=== PATIENT | male | born 1985 | race Native Hawaiian/Other Pacific Islander ===

== ENCOUNTER 2019-09-24 13:29 | Inpatient (IN) | payer OTHER ==
[~2019-09-24] VITALS: Ht 167.6 cm; Wt 83.5 kg
[2019-09-24] MEDS ORDERED: OxyCODONE HCL 5 MG IR TABLET PO PRN (23:45)
[2019-09-24] MEDS ORDERED: OxyCODONE HCL 10 MG IR TABLET PO PRN (23:45)
[2019-09-25 00:18] VITALS: BP 113/63
[2019-09-25] MEDS: MELATONIN 3 MG TABLET PO PRN ×2 (00:24→20:38)
[2019-09-25] MEDS: DOCUSATE SODIUM 100 MG CAPSULE PO SCH ×3 (00:24→20:38)
[2019-09-25] MEDS: GABAPENTIN 300 MG CAPSULE PO SCH ×4 (00:25→23:23)
[2019-09-25] MEDS: ENOXAPARIN SODIUM 30 MG/0.3 ML PF SYRINGE SQ SCH ×3 (00:26→20:38)
[2019-09-25 08:15] VITALS: BP 116/69
[2019-09-25] MEDS: ACETAMINOPHEN 325 MG TABLET PO PRN (08:26)
[2019-09-25 08:31] LABS: BASOPHILS % (AUTO) 1.1 % (0.0-2.0); HEMATOCRIT 33.6 % (41-53); HEMOGLOBIN 11.3 g/dL (13.5-17.5); LYMPHOCYTES # (AUTO) 2.3 K/uL (1.0-4.8); LYMPHOCYTES % (AUTO) 39.2 % (22.0-44.0); MEAN CORPUSCULAR HEMOGLOBIN 29.9 pg (26.0-34.0); MEAN CORPUSCULAR HGB CONC 33.5 G/dL (31.0-37.0); MEAN CORPUSCULAR VOLUME 89 fL (80-100); MONOCYTES # (AUTO) 0.6 K/uL (0.1-1.0); MONOCYTES % (AUTO) 9.6 % (2.0-9.0); NEUTROPHILS # (AUTO) 2.9 K/uL (1.8-7.7); NEUTROPHILS % (AUTO) 49.1 % (40.0-70.0); PLATELET COUNT (AUTO) 409 K/uL (150-450); RED BLOOD CELL COUNT(AUTO) 3.77 MIL/uL (4.50-5.90); RED CELL DISTRIBUTION WIDTH 16.4 % (11.5-14.5)
[2019-09-25 09:00] LABS: ALANINE AMINOTRANSFERASE 35 U/L (12-78); ALBUMIN 3.5 g/dL (3.4-5.0); ALKALINE PHOSPHATASE 172 U/L (46-116); ANION GAP 9 mmol/L (8-16); ASPARTATE AMINOTRANSFERASE 20 U/L (15-37); BILIRUBIN,TOTAL 0.4 mg/dL (0.1-1.0); CARBON DIOXIDE 28 mmol/L (22-29); CHLORIDE 105 mmol/L (98-107); CREATININE 0.87 mg/dL (0.60-1.30); GLOMERULAR FILTR. RATE CALC > 60 mL/min (>60); GLUCOSE,RANDOM 88 mg/dL (70-110); POTASSIUM 3.3 mmol/L (3.5-5.1); SODIUM SERUM 142 mmol/L (136-145); TOTAL PROTEIN, SERUM 7.2 g/dL (6.4-8.2); UREA NITROGEN, BLOOD 9 mg/dL (7-18)
[2019-09-25] MEDS ORDERED: LORazepam 0.5 MG TABLET PO PRN (12:15)
[2019-09-25] MEDS ORDERED: POTASSIUM CHLORIDE 10 MEQ ER TABLET PO ONE ×2 (13:00→21:00)
[2019-09-25 15:32] VITALS: BP 124/75
[2019-09-25] MEDS: OxyCODONE HCL 20 MG ER TABLET PO SCH (20:38)
[2019-09-25] MEDS: SENNA 187 MG TABLET PO SCH (20:39)
[2019-09-26] VITALS: BP 117/74
[2019-09-26 09:15] VITALS: BP 118/82
[2019-09-26] MEDS: ENOXAPARIN SODIUM 30 MG/0.3 ML PF SYRINGE SQ SCH ×2 (09:15→20:20)
[2019-09-26] MEDS: GABAPENTIN 300 MG CAPSULE PO SCH ×3 (09:16→20:25)
[2019-09-26] MEDS: DOCUSATE SODIUM 100 MG CAPSULE PO SCH ×2 (09:16→20:18)
[2019-09-26] MEDS: OxyCODONE HCL 20 MG ER TABLET PO SCH ×2 (09:16→20:20)
[2019-09-26 09:27] LABS: ANION GAP 8 mmol/L (8-16); CALCIUM, TOTAL 9.3 mg/dL (8.8-10.5); CARBON DIOXIDE 28 mmol/L (22-29); CHLORIDE 104 mmol/L (98-107); CREATININE 0.97 mg/dL (0.60-1.30); GLOMERULAR FILTR. RATE CALC > 60 mL/min (>60); GLUCOSE,RANDOM 121 mg/dL (70-110); POTASSIUM 3.8 mmol/L (3.5-5.1); SODIUM SERUM 140 mmol/L (136-145); UREA NITROGEN, BLOOD 13 mg/dL (7-18)
[2019-09-26 17:00] VITALS: BP 109/59
[2019-09-26] MEDS: SENNA 187 MG TABLET PO SCH (20:19)
[2019-09-26] MEDS: MELATONIN 3 MG TABLET PO PRN (20:19)
[2019-09-26] MEDS ORDERED: POLYETHYLENE GLYCOL 3350 17 GM PACKET PO PRN (21:30)
[2019-09-27] MEDS ORDERED: TRAZ-252 PO (02:06)
[2019-09-27 04:00] VITALS: BP 119/68
[2019-09-27 07:20] VITALS: BP 113/65
[2019-09-27] MEDS: OxyCODONE HCL 20 MG ER TABLET PO SCH ×2 (07:39→21:13)
[2019-09-27] MEDS: GABAPENTIN 300 MG CAPSULE PO SCH ×3 (08:20→21:13)
[2019-09-27] MEDS: DOCUSATE SODIUM 100 MG CAPSULE PO SCH ×2 (08:20→21:13)
[2019-09-27] MEDS: ENOXAPARIN SODIUM 30 MG/0.3 ML PF SYRINGE SQ SCH ×2 (08:21→21:14)
[2019-09-27 17:24] VITALS: BP 116/67
[2019-09-27] MEDS: SENNA 187 MG TABLET PO SCH (21:13)
[2019-09-27] MEDS: TraZODone HCL 50 MG TABLET PO PRN (21:13)
[2019-09-27] MEDS ORDERED: MAGNESIUM HYDROXIDE SUSPENSION 30 ML UDCUP PO PRN (21:30)
[2019-09-27] MEDS: DOCUSATE SODIUM 283 MG/5 ML MINI-ENEMA PR PRN (21:38)
[2019-09-28] VITALS: BP 116/71
[2019-09-28] MEDS: ENOXAPARIN SODIUM 30 MG/0.3 ML PF SYRINGE SQ SCH ×2 (08:27→20:59)
[2019-09-28] MEDS: OxyCODONE HCL 20 MG ER TABLET PO SCH ×2 (08:28→21:00)
[2019-09-28] MEDS: DOCUSATE SODIUM 250 MG CAPSULE PO SCH ×2 (08:28→20:59)
[2019-09-28] MEDS: GABAPENTIN 300 MG CAPSULE PO SCH ×3 (08:28→20:59)
[2019-09-28 08:30] VITALS: BP 118/64
[2019-09-28 16:00] VITALS: BP 114/66
[2019-09-28] MEDS: DOCUSATE SODIUM 283 MG/5 ML MINI-ENEMA PR PRN (19:33)
[2019-09-28] MEDS: SENNA 187 MG TABLET PO SCH (20:59)
[2019-09-28] MEDS: TraZODone HCL 50 MG TABLET PO PRN (20:59)
[2019-09-29 00:09] VITALS: BP 110/59
[2019-09-29 07:40] VITALS: BP 110/69
[2019-09-29 08:00] VITALS: BP 110/69
[2019-09-29] MEDS: OxyCODONE HCL 20 MG ER TABLET PO SCH ×2 (09:00→21:00)
[2019-09-29] MEDS: DOCUSATE SODIUM 250 MG CAPSULE PO SCH ×2 (10:23→21:54)
[2019-09-29] MEDS: GABAPENTIN 300 MG CAPSULE PO SCH ×3 (10:23→21:54)
[2019-09-29] MEDS: ENOXAPARIN SODIUM 30 MG/0.3 ML PF SYRINGE SQ SCH ×2 (10:23→21:53)
[2019-09-29 16:00] VITALS: BP 128/72
[2019-09-29] MEDS: SENNA 187 MG TABLET PO SCH (21:00)
[2019-09-29] MEDS: TraZODone HCL 50 MG TABLET PO PRN (23:01)
[2019-09-30 00:01] VITALS: BP 121/75
[2019-09-30 07:05] VITALS: BP 120/68
[2019-09-30] MEDS: GABAPENTIN 300 MG CAPSULE PO SCH ×3 (07:43→20:33)
[2019-09-30] MEDS: ONDANSETRON HCL 4 MG TABLET PO PRN (07:43)
[2019-09-30] MEDS: DOCUSATE SODIUM 250 MG CAPSULE PO SCH ×2 (07:44→20:33)
[2019-09-30] MEDS: OxyCODONE HCL 20 MG ER TABLET PO SCH ×2 (08:05→20:35)
[2019-09-30] MEDS: ENOXAPARIN SODIUM 30 MG/0.3 ML PF SYRINGE SQ SCH ×2 (08:05→20:34)
[2019-09-30 16:45] VITALS: BP 116/77
[2019-09-30] MEDS: SENNA 187 MG TABLET PO SCH (20:34)
[2019-09-30] MEDS: TraZODone HCL 50 MG TABLET PO PRN (21:40)
[2019-10-01] VITALS: BP 105/67
[2019-10-01 08:15] VITALS: BP 114/66
[2019-10-01] MEDS: GABAPENTIN 300 MG CAPSULE PO SCH ×3 (08:58→20:47)
[2019-10-01] MEDS: DOCUSATE SODIUM 250 MG CAPSULE PO SCH ×2 (08:58→20:47)
[2019-10-01] MEDS: OxyCODONE HCL 20 MG ER TABLET PO SCH (08:59)
[2019-10-01] MEDS: ENOXAPARIN SODIUM 30 MG/0.3 ML PF SYRINGE SQ SCH ×2 (08:59→20:47)
[2019-10-01 17:18] VITALS: BP 130/91
[2019-10-01] MEDS: SENNA 187 MG TABLET PO SCH ×2 (20:47→20:52)
[2019-10-01] MEDS: TraZODone HCL 100 MG TABLET PO PRN (20:51)
[2019-10-02] VITALS: BP 116/57
[2019-10-02] MEDS: GABAPENTIN 300 MG CAPSULE PO SCH ×3 (08:56→20:22)
[2019-10-02] MEDS: DOCUSATE SODIUM 250 MG CAPSULE PO SCH ×2 (08:56→20:22)
[2019-10-02] MEDS: ENOXAPARIN SODIUM 30 MG/0.3 ML PF SYRINGE SQ SCH ×2 (09:05→20:21)
[2019-10-02 09:16] VITALS: BP 119/69
[2019-10-02] MEDS: ASCORBIC ACID 500 MG TABLET PO SCH (13:39)
[2019-10-02] MEDS: MULTIVITAMINS WITH MINERALS, THERAPEUTIC TABLET PO SCH (13:39)
[2019-10-02 17:39] VITALS: BP 131/87
[2019-10-02] MEDS: SENNA 187 MG TABLET PO SCH (20:22)
[2019-10-02] MEDS: TraZODone HCL 100 MG TABLET PO PRN (20:31)
[2019-10-03 00:30] VITALS: BP 111/69
[2019-10-03] MEDS: DOCUSATE SODIUM 250 MG CAPSULE PO SCH ×2 (08:23→21:01)
[2019-10-03] MEDS: MULTIVITAMINS WITH MINERALS, THERAPEUTIC TABLET PO SCH (08:23)
[2019-10-03] MEDS: ASCORBIC ACID 500 MG TABLET PO SCH (08:23)
[2019-10-03] MEDS: ENOXAPARIN SODIUM 30 MG/0.3 ML PF SYRINGE SQ SCH ×2 (08:23→21:01)
[2019-10-03] MEDS: GABAPENTIN 300 MG CAPSULE PO SCH ×3 (08:23→21:01)
[2019-10-03 09:00] VITALS: BP 131/90
[2019-10-03 16:05] VITALS: BP 131/85
[2019-10-03] MEDS: PANTOPRAZOLE SODIUM 40 MG DR TABLET PO SCH (18:38)
[2019-10-03 18:42] LABS: BASOPHILS % (AUTO) 1.3 % (0.0-2.0); EOSINOPHILS % (AUTO) 1.8 % (1.0-6.0); HEMATOCRIT 38.6 % (41-53); HEMOGLOBIN 13.1 g/dL (13.5-17.5); LYMPHOCYTES # (AUTO) 2.5 K/uL (1.0-4.8); LYMPHOCYTES % (AUTO) 41.4 % (22.0-44.0); MEAN CORPUSCULAR HEMOGLOBIN 30.1 pg (26.0-34.0); MEAN CORPUSCULAR VOLUME 89 fL (80-100); MONOCYTES # (AUTO) 0.6 K/uL (0.1-1.0); MONOCYTES % (AUTO) 9.2 % (2.0-9.0); NEUTROPHILS # (AUTO) 2.8 K/uL (1.8-7.7); NEUTROPHILS % (AUTO) 46.3 % (40.0-70.0); PLATELET COUNT (AUTO) 263 K/uL (150-450); RED BLOOD CELL COUNT(AUTO) 4.36 MIL/uL (4.50-5.90); RED CELL DISTRIBUTION WIDTH 14.6 % (11.5-14.5)
[2019-10-03 18:51] LABS: ANION GAP 8 mmol/L (8-16); CARBON DIOXIDE 30 mmol/L (22-29); CHLORIDE 106 mmol/L (98-107); CREATININE 1.09 mg/dL (0.60-1.30); GLOMERULAR FILTR. RATE CALC > 60 mL/min (>60); GLUCOSE,RANDOM 115 mg/dL (70-110); POTASSIUM 4.1 mmol/L (3.5-5.1); SODIUM SERUM 144 mmol/L (136-145); UREA NITROGEN, BLOOD 12 mg/dL (7-18)
[2019-10-03 18:57] LABS: ALANINE AMINOTRANSFERASE 54 U/L (12-78); ALBUMIN 3.8 g/dL (3.4-5.0); ALKALINE PHOSPHATASE 205 U/L (46-116); ASPARTATE AMINOTRANSFERASE 14 U/L (15-37); BILIRUBIN,TOTAL 0.3 mg/dL (0.1-1.0); TOTAL PROTEIN, SERUM 7.5 g/dL (6.4-8.2)
[2019-10-03] MEDS ORDERED: SODIUM CHLORIDE 0.9% 100 ML ONE (19:44)
[2019-10-03] MEDS ORDERED: IOVERSOL 350 MG/ML 100 ML VIAL ONE (19:45)
[2019-10-03] MEDS: SENNA 187 MG TABLET PO SCH (21:00)
[2019-10-03] MEDS: ACETAMINOPHEN 325 MG TABLET PO PRN (21:01)
[2019-10-03] MEDS: TraZODone HCL 100 MG TABLET PO PRN (21:40)
[2019-10-03] MEDS ORDERED: SIMETHICONE 80 MG CHEWABLE TABLET CHEW PRN (22:30)
[2019-10-03 23:30] VITALS: BP 119/82
[2019-10-03] MEDS: 0.9% SODIUM CHLORIDE 10 ML SYRINGE IVP SCH (23:33)
[2019-10-04] MEDS ORDERED: SIMETHICONE 80 MG CHEWABLE TABLET CHEW PRN (04:30)
[2019-10-04 06:38] LABS: ALANINE AMINOTRANSFERASE 41 U/L (12-78); ALBUMIN 3.2 g/dL (3.4-5.0); ALKALINE PHOSPHATASE 166 U/L (46-116); ANION GAP 9 mmol/L (8-16); ASPARTATE AMINOTRANSFERASE 11 U/L (15-37); BILIRUBIN,TOTAL 0.2 mg/dL (0.1-1.0); CALCIUM, TOTAL 8.6 mg/dL (8.8-10.5); CARBON DIOXIDE 24 mmol/L (22-29); CHLORIDE 108 mmol/L (98-107); CREATININE 0.92 mg/dL (0.60-1.30); GLOMERULAR FILTR. RATE CALC > 60 mL/min (>60); GLUCOSE,RANDOM 100 mg/dL (70-110); POTASSIUM 3.8 mmol/L (3.5-5.1); SODIUM SERUM 141 mmol/L (136-145); TOTAL PROTEIN, SERUM 6.7 g/dL (6.4-8.2); UREA NITROGEN, BLOOD 9 mg/dL (7-18)
[2019-10-04] MEDS: PANTOPRAZOLE SODIUM 40 MG DR TABLET PO SCH ×2 (08:55→20:15)
[2019-10-04] MEDS: 0.9% SODIUM CHLORIDE 10 ML SYRINGE IVP SCH (08:55)
[2019-10-04] MEDS: DOCUSATE SODIUM 250 MG CAPSULE PO SCH ×2 (08:56→20:16)
[2019-10-04] MEDS: MULTIVITAMINS WITH MINERALS, THERAPEUTIC TABLET PO SCH (08:56)
[2019-10-04] MEDS: ENOXAPARIN SODIUM 30 MG/0.3 ML PF SYRINGE SQ SCH ×2 (08:57→20:15)
[2019-10-04] MEDS: ASCORBIC ACID 500 MG TABLET PO SCH (08:57)
[2019-10-04] MEDS: GABAPENTIN 300 MG CAPSULE PO SCH ×3 (08:58→20:15)
[2019-10-04 09:00] VITALS: BP 116/70
[2019-10-04 15:30] VITALS: BP 119/74
[2019-10-04 16:00] VITALS: BP 119/74
[2019-10-04] MEDS: SENNA 187 MG TABLET PO SCH (20:16)
[2019-10-04] MEDS: TraZODone HCL 100 MG TABLET PO PRN (21:34)
[2019-10-05] VITALS: BP 116/69
[2019-10-05] MEDS: PANTOPRAZOLE SODIUM 40 MG DR TABLET PO SCH ×2 (06:42→20:11)
[2019-10-05] MEDS: MULTIVITAMINS WITH MINERALS, THERAPEUTIC TABLET PO SCH (06:42)
[2019-10-05] MEDS: ASCORBIC ACID 500 MG TABLET PO SCH (06:42)
[2019-10-05] MEDS: DOCUSATE SODIUM 250 MG CAPSULE PO SCH ×2 (06:42→20:10)
[2019-10-05] MEDS: ENOXAPARIN SODIUM 30 MG/0.3 ML PF SYRINGE SQ SCH ×2 (06:43→20:09)
[2019-10-05] MEDS: GABAPENTIN 300 MG CAPSULE PO SCH ×3 (06:43→20:11)
[2019-10-05] MEDS: ONDANSETRON HCL 4 MG TABLET PO PRN (06:43)
[2019-10-05 07:15] VITALS: BP 125/86
[2019-10-05 17:08] VITALS: BP 120/62
[2019-10-05] MEDS ORDERED: SODIUM CL IRRIG SOLN BOTTLE 250 ML IRRIG ONE (19:56)
[2019-10-05] MEDS: SENNA 187 MG TABLET PO SCH (20:11)
[2019-10-05] MEDS: TraZODone HCL 100 MG TABLET PO PRN (20:11)
[2019-10-06 01:47] VITALS: BP 124/73
[2019-10-06 08:02] VITALS: BP 113/71
[2019-10-06] MEDS: DOCUSATE SODIUM 250 MG CAPSULE PO SCH ×2 (08:45→21:06)
[2019-10-06] MEDS: GABAPENTIN 300 MG CAPSULE PO SCH ×3 (08:45→21:06)
[2019-10-06] MEDS: MULTIVITAMINS WITH MINERALS, THERAPEUTIC TABLET PO SCH (08:45)
[2019-10-06] MEDS: ASCORBIC ACID 500 MG TABLET PO SCH (08:45)
[2019-10-06] MEDS: PANTOPRAZOLE SODIUM 40 MG DR TABLET PO SCH ×2 (08:45→21:06)
[2019-10-06] MEDS: ENOXAPARIN SODIUM 30 MG/0.3 ML PF SYRINGE SQ SCH ×2 (09:08→21:07)
[2019-10-06 16:37] VITALS: BP 130/79
[2019-10-06] MEDS: SENNA 187 MG TABLET PO SCH ×2 (21:00→21:06)
[2019-10-06] MEDS: TraZODone HCL 100 MG TABLET PO PRN (21:07)
[2019-10-07 00:07] VITALS: BP 119/76
[2019-10-07] MEDS: MULTIVITAMINS WITH MINERALS, THERAPEUTIC TABLET PO SCH (08:53)
[2019-10-07] MEDS: DOCUSATE SODIUM 250 MG CAPSULE PO SCH ×2 (08:53→20:18)
[2019-10-07] MEDS: GABAPENTIN 300 MG CAPSULE PO SCH ×3 (08:54→20:18)
[2019-10-07] MEDS: PANTOPRAZOLE SODIUM 40 MG DR TABLET PO SCH ×2 (08:54→20:18)
[2019-10-07] MEDS: ASCORBIC ACID 500 MG TABLET PO SCH (08:54)
[2019-10-07] MEDS: ENOXAPARIN SODIUM 30 MG/0.3 ML PF SYRINGE SQ SCH ×2 (08:55→20:18)
[2019-10-07 09:04] VITALS: BP 122/78
[2019-10-07] MEDS ORDERED: SODIUM CL IRRIG SOLN BOTTLE 250 ML IRRIG ONE (10:45)
[2019-10-07 16:00] VITALS: BP 114/71
[2019-10-07] MEDS: SENNA 187 MG TABLET PO SCH (20:18)
[2019-10-07] MEDS: TraZODone HCL 100 MG TABLET PO PRN (20:24)
[2019-10-07 23:11] VITALS: BP 120/80
[2019-10-07] MEDS: IBUPROFEN 600 MG TABLET PO PRN (23:11)
[2019-10-08] MEDS: GABAPENTIN 300 MG CAPSULE PO SCH ×3 (08:54→20:12)
[2019-10-08] MEDS: MULTIVITAMINS WITH MINERALS, THERAPEUTIC TABLET PO SCH (08:54)
[2019-10-08] MEDS: IBUPROFEN 600 MG TABLET PO PRN ×2 (08:54→21:37)
[2019-10-08] MEDS: ENOXAPARIN SODIUM 30 MG/0.3 ML PF SYRINGE SQ SCH ×2 (08:54→20:12)
[2019-10-08] MEDS: ASCORBIC ACID 500 MG TABLET PO SCH (08:54)
[2019-10-08] MEDS: PANTOPRAZOLE SODIUM 40 MG DR TABLET PO SCH (08:54)
[2019-10-08] MEDS: DOCUSATE SODIUM 250 MG CAPSULE PO SCH ×2 (08:54→20:12)
[2019-10-08 08:55] VITALS: BP 126/85
[2019-10-08 17:12] VITALS: BP 121/76
[2019-10-08] MEDS: TraZODone HCL 100 MG TABLET PO PRN (20:12)
[2019-10-08] MEDS: SENNA 187 MG TABLET PO SCH (20:12)
[2019-10-09 00:30] VITALS: BP 121/76
[2019-10-09 07:30] VITALS: BP 124/70
[2019-10-09] MEDS: DOCUSATE SODIUM 250 MG CAPSULE PO SCH ×2 (08:50→20:23)
[2019-10-09] MEDS: GABAPENTIN 300 MG CAPSULE PO SCH ×3 (08:50→20:23)
[2019-10-09] MEDS: MULTIVITAMINS WITH MINERALS, THERAPEUTIC TABLET PO SCH (08:50)
[2019-10-09] MEDS: FAMOTIDINE 20 MG TABLET PO SCH (08:50)
[2019-10-09] MEDS: ASCORBIC ACID 500 MG TABLET PO SCH (08:50)
[2019-10-09] MEDS: ENOXAPARIN SODIUM 30 MG/0.3 ML PF SYRINGE SQ SCH ×2 (08:51→20:23)
[2019-10-09] MEDS: IBUPROFEN 600 MG TABLET PO PRN ×2 (09:17→21:09)
[2019-10-09 16:02] VITALS: BP 122/72
[2019-10-09] MEDS: SENNA 187 MG TABLET PO SCH (20:24)
[2019-10-09] MEDS: TraZODone HCL 100 MG TABLET PO PRN (20:24)
[2019-10-10 05:51] VITALS: BP 122/76
[2019-10-10 07:20] VITALS: BP 123/77
[2019-10-10] MEDS: GABAPENTIN 300 MG CAPSULE PO SCH ×3 (08:16→20:29)
[2019-10-10] MEDS: DOCUSATE SODIUM 250 MG CAPSULE PO SCH ×2 (08:16→20:29)
[2019-10-10] MEDS: MULTIVITAMINS WITH MINERALS, THERAPEUTIC TABLET PO SCH (08:16)
[2019-10-10] MEDS: ASCORBIC ACID 500 MG TABLET PO SCH (08:16)
[2019-10-10] MEDS: FAMOTIDINE 20 MG TABLET PO SCH (08:16)
[2019-10-10] MEDS: ENOXAPARIN SODIUM 30 MG/0.3 ML PF SYRINGE SQ SCH (08:16)
[2019-10-10 08:17] LABS: BASOPHILS % (AUTO) 1.1 % (0.0-2.0); EOSINOPHILS % (AUTO) 4.5 % (1.0-6.0); HEMATOCRIT 38.9 % (41-53); HEMOGLOBIN 12.9 g/dL (13.5-17.5); LYMPHOCYTES # (AUTO) 2.3 K/uL (1.0-4.8); LYMPHOCYTES % (AUTO) 48.9 % (22.0-44.0); MEAN CORPUSCULAR HEMOGLOBIN 28.9 pg (26.0-34.0); MEAN CORPUSCULAR HGB CONC 33.2 G/dL (31.0-37.0); MEAN CORPUSCULAR VOLUME 87 fL (80-100); MONOCYTES # (AUTO) 0.2 K/uL (0.1-1.0); MONOCYTES % (AUTO) 5.4 % (2.0-9.0); NEUTROPHILS # (AUTO) 1.8 K/uL (1.8-7.7); NEUTROPHILS % (AUTO) 40.1 % (40.0-70.0); PLATELET COUNT (AUTO) 249 K/uL (150-450); RED BLOOD CELL COUNT(AUTO) 4.46 MIL/uL (4.50-5.90)
[2019-10-10 15:30] VITALS: BP 100/51
[2019-10-10] MEDS: IBUPROFEN 600 MG TABLET PO PRN (16:27)
[2019-10-10] MEDS: SENNA 187 MG TABLET PO SCH (20:29)
[2019-10-10] MEDS: TraZODone HCL 100 MG TABLET PO PRN (20:29)
[2019-10-11] VITALS: BP 128/75
[2019-10-11] MEDS: ENOXAPARIN SODIUM 40 MG/0.4 ML PF SYRINGE SQ SCH (08:20)
[2019-10-11] MEDS: ASCORBIC ACID 500 MG TABLET PO SCH (08:21)
[2019-10-11] MEDS: GABAPENTIN 300 MG CAPSULE PO SCH ×3 (08:21→20:39)
[2019-10-11] MEDS: MULTIVITAMINS WITH MINERALS, THERAPEUTIC TABLET PO SCH (08:21)
[2019-10-11] MEDS: DOCUSATE SODIUM 250 MG CAPSULE PO SCH ×2 (08:21→20:39)
[2019-10-11] MEDS: FAMOTIDINE 20 MG TABLET PO SCH (08:21)
[2019-10-11 08:22] VITALS: BP 110/73
[2019-10-11] MEDS: IBUPROFEN 600 MG TABLET PO PRN (08:22)
[2019-10-11 16:03] VITALS: BP 129/86
[2019-10-11] MEDS: TraZODone HCL 100 MG TABLET PO PRN (20:39)
[2019-10-11] MEDS: SENNA 187 MG TABLET PO SCH (20:41)
[2019-10-11] MEDS ORDERED: IBUP-2070 PO (23:30)
[2019-10-11] MEDS ORDERED: DOCU-342 PO (23:30)
[2019-10-11] MEDS ORDERED: GABA-531 PO (23:30)
[2019-10-11] MEDS ORDERED: MULT-1239 PO (23:30)
[2019-10-11] MEDS ORDERED: ONDA-104 PO (23:30)
[2019-10-11] MEDS ORDERED: ASCO500 PO (23:30)
[2019-10-11] MEDS ORDERED: FAMO20 PO (23:30)
[2019-10-11] MEDS ORDERED: APIX5TAB PO (23:30)
[2019-10-12] MEDS: DOCUSATE SODIUM 250 MG CAPSULE PO SCH (05:26)
[2019-10-12] MEDS: FAMOTIDINE 20 MG TABLET PO SCH (05:26)
[2019-10-12 05:27] VITALS: BP 125/79
[2019-10-12] MEDS: MULTIVITAMINS WITH MINERALS, THERAPEUTIC TABLET PO SCH (05:27)
[2019-10-12] MEDS: ASCORBIC ACID 500 MG TABLET PO SCH (05:27)
[2019-10-12] MEDS: ONDANSETRON HCL 4 MG TABLET PO PRN (05:27)
[2019-10-12] MEDS: IBUPROFEN 600 MG TABLET PO PRN (05:27)
[2019-10-12] MEDS: GABAPENTIN 300 MG CAPSULE PO SCH (05:28)
[2019-10-12] MEDS: ENOXAPARIN SODIUM 40 MG/0.4 ML PF SYRINGE SQ SCH (05:29)
== END 2019-10-12 06:07 | DRG 963 ==
LOC: 2WR 19:30
DX: S06.0X0A Concussion without loss of consciousness, initial encounter (principal); S52.592B Other fractures of lower end of left radius, initial encounter for open fracture type I or II; J96.90 Respiratory failure, unspecified, unspecified whether with hypoxia or hypercapnia; S32.89XA Fracture of other parts of pelvis, initial encounter for closed fracture; J18.9 Pneumonia, unspecified organism; S52.692A Other fracture of lower end of left ulna, initial encounter for closed fracture; E87.1 Hypo-osmolality and hyponatremia; J90 Pleural effusion, not elsewhere classified; F41.9 Anxiety disorder, unspecified; F32.9 Major depressive disorder, single episode, unspecified; E87.6 Hypokalemia; D50.0 Iron deficiency anemia secondary to blood loss (chronic); F43.23 Adjustment disorder with mixed anxiety and depressed mood; M77.32 Calcaneal spur, left foot; S39.848A Other specified injuries of external genitals, initial encounter; R41.3 Other amnesia; G47.00 Insomnia, unspecified; K59.03 Drug induced constipation; T40.2X5A Adverse effect of other opioids, initial encounter; N31.9 Neuromuscular dysfunction of bladder, unspecified; V29.88XA Motorcycle rider (driver) (passenger) injured in other specified transport accidents, initial encounter; Z79.899 Other long term (current) drug therapy; Y92.89 Other specified places as the place of occurrence of the external cause
CPT/HCPCS: 71275; 85379; 87081; 92507; 92508; 92523; 93005; 97110; 97140; 97150; 97163; 97167; 97530; 97535; 99366; J1650; J7050; Q0162